=== PATIENT | male | born 1985 | race Caucasian/White ===

== ENCOUNTER 2020-11-01 11:37 | Outpatient (CLI) | payer OTHER, SELFPAY ==
--- NOTE | ~2020-11-01 | NM_ITS ---
EXAMINATION: NM bone scan whole body DATE: 11/01/2020 15:00 INDICATION: Complete fusion at the L2 level of the lumbar spinal cord. TECHNIQUE: 25 mCi Tc-99m HDP was administered intravenously. Delayed whole-body scintigrams were obt ained. COMPARISON: There are no relevant imaging studies at our institution. FINDINGS: Mild likely degenerative increased signal at the bilateral acromioclavicular and sternoclavicular yuri nts, left elbow, bilateral knees most prominent at the bilateral patellofemoral and right medial comp artments and at the bilateral mid feet. Increased uptake at the plantar aspect of the posterior calca neus likely related to enthesopathy. No other suspicious foci of increased or decreased bone uptake. Specifically the L2 vertebral body appears normal. IMPRESSION: 1. Scattered mild likely degenerative increased joint centered uptake. No other suspicious foci of ab normal bone uptake. Specifically normal activity at the L2 vertebral body. Reviewed, dictated and finalized at location A. IMPRESSION: 1. Scattered mild likely degenerative increased joint centered uptake. No other suspicious foci of abnormal bone uptake. Specifically normal activity at the L 2 vertebral body.
== END 2020-11-01 11:38 | disposition home or self-care (01) ==
PROVIDERS: PCP Family Medicine; Visit Provider Nurse Practitioner Adult Health
DX: S34.112A Complete lesion of L2 level of lumbar spinal cord, initial encounter (principal); X58.XXXA Exposure to other specified factors, initial encounter
CPT/HCPCS: 78306; A9561